=== PATIENT | female | born 2000 | race Caucasian/White ===

== ENCOUNTER 2020-01-03 12:40 | Emergency (ER) | payer BC ==
[2020-01-03] MEDS ORDERED: Lidocaine 1% 10 ML MDV INJECT ONE (13:15)
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
--- NOTE | 2020-01-03 14:10 | CR ---
Left foot: 4 views of the left foot were obtained. Comparison: No previous left foot exam is available. No fracture, dislocation or other bony abnormality is appreciated. Impression: 1. No abnormality is identified on left foot exam. Diagnostic code #1 This report was dictated in MDT
== END 2020-01-03 14:27 | disposition home or self-care (01) ==
LOC: JD.ED 12:40
DX: S01.112A Laceration without foreign body of left eyelid and periocular area, initial encounter (principal); S90.32XA Contusion of left foot, initial encounter; F41.9 Anxiety disorder, unspecified; F32.9 Major depressive disorder, single episode, unspecified; Z88.0 Allergy status to penicillin; Z79.899 Other long term (current) drug therapy; W11.XXXA Fall on and from ladder, initial encounter
CPT/HCPCS: 12011; 73630; 99283; J2001; 99282

== ENCOUNTER 2020-03-03 17:50 | Emergency (ER) | payer BC ==
--- NOTE | 2020-03-03 18:39 | EDM.PDOC ---
ED HPI GENERAL MEDICAL PROBLEM - General Chief Complaint: ENT Problem Stated Complaint: SORE THROAT, RUNNY NOSE Time Seen by Provider: 03/03/20 18:05 Source of Information: Reports: Patient, RN Notes Reviewed History Limitations: Reports: No Limitations - History of Present Illness INITIAL COMMENTS - FREE TEXT/NARRATIVE: Patient is a 19-year-old female who presents to the ED for the evaluation of her upper respiratory symptoms. Patient was seen at the [facility], and was tested for influenza, and had this ruled out. She was sent here by her primary care, for a COVID test. Patient states that she has been having issues with a headache, sore throat, fullness behind her ears, a mild cough that all started today or late yesterday. She denies any fevers or chills, nausea/vomiting, or any shortness of breath. 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 O2 sats at time of triage are 98% on room air, patient's heart rate is 106, she is afebrile at 98.6 F, respiratory rate is 18 nonlabored, blood pressure is 123/72. Patient denies any other past medical history, and states that she is not , because she has not had sex ever. 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 Psychiatric History: Reports: Anxiety, Depression Dermatologic History: Reports: Other (See Below) Other Dermatologic History: acne - Past Surgical History HEENT Surgical History: Reports: Adenoidectomy, Oral Surgery, Tonsillectomy Female Surgical History: Reports: Breast Reduction Social & Family History - Family History Family Medical History: Noncontributory - Tobacco Use Smoking Status *Q: Never Smoker Second Hand Smoke Exposure: No - Caffeine Use Caffeine Use: Reports: Coffee, Soda, Tea - Recreational Drug Use Recreational Drug Use: No ED ROS ENT - Review of Systems Review Of Systems: See Below Constitutional: Reports: Malaise. Denies: Fever, Chills Respiratory: Reports: Cough (mild). Denies: Shortness of Breath Cardiovascular: Denies: Chest Pain GI/Abdominal: Denies: Nausea, Vomiting Neurological: Reports: Headache ED EXAM, ENT - Physical Exam Exam: See Below Exam Limited By: No Limitations General Appearance: Alert, WD/WN, No Apparent Distress Ears: Normal External Exam, Normal Canal, Hearing Grossly Normal, Normal TMs Nose: Normal Inspection Mouth/Throat: Normal Inspection, Normal Gums, Normal Lips, Normal Oropharynx, Normal Teeth, Pharyngeal Erythema (mild). No: Uvular Deviation, Uvular Edema Head: Atraumatic, Normocephalic Neck: Normal Inspection, Supple, Non-Tender, Full Range of Motion Respiratory/Chest: No Respiratory Distress, Lungs Clear, Normal Breath Sounds, No Accessory Muscle Use, Chest Non-Tender Cardiovascular: Normal Peripheral Pulses, Regular Rate, Rhythm, No Murmur GI/Abdominal: Normal Bowel Sounds, Soft, Non-Tender, No Distention, No Mass Extremities: Normal Inspection, Normal Capillary Refill Neurological: Alert, Oriented, Normal Cognition, No Motor/Sensory Deficits Psychiatric: Normal Affect, Normal Mood Skin: Warm, Dry, Intact, Normal Color, No Rash Course - Vital Signs Last Recorded V/S: Last Vital Signs Temp 98.6 F 03/03/20 18:02 Pulse 106 H 03/03/20 18:02 Resp 18 03/03/20 18:02 BP 123/72 03/03/20 18:02 Pulse Ox 97 03/03/20 18:02 - Orders/Labs/Meds Orders: Active Orders 24 hr Category Date Time Status Chest 1V Frontal [CR] Stat Exams 03/03/20 18:33 Stop Req CORONAVIRUS COVID-19 PCR PHL Stat Lab 03/03/20 18:16 Ordered STREP SCRN A RAPID W CULT CONF [RM] Stat Lab 03/03/20 18:15 Ordered - Re-Assessments/Exams Free Text/Narrative Re-Assessment/Exam: 03/03/20 18:39 Patient presents to the ED for evaluation of her upper respiratory symptoms. Although I do believe she probably has low likelihood to have COVID-19 infection, she does have a few of the symptoms and will be screened at today's visit. She will also have a strep swab checked, along with a chest x-ray. M other states that she has quite a bit of family over due to a recent in the family, and was worried about the possibility of spreading it to other family members. 03/03/20 18:52 Was made aware by nursing, that the patient has a pretty profuse gag reflex, and is not allowing her to get an adequate sample for the swabs and is refusing at this time. With this information I did talk with the patient and she does not want a chest x-ray either, she will monitor symptoms at home and present for management if needed. This is fine with me I did tell her that she should probably try to self isolate from elderly family members as much as possible, they seem to be okay with this at this time. Departure - Departure Time of Disposition: 18:53 Disposition: Home, Self-Care 01 Condition: Good Clinical Impression: Viral URI - Discharge Information *PRESCRIPTION DRUG MONITORING PROGRAM REVIEWED*: No *COPY OF PRESCRIPTION DRUG MONITORING REPORT IN PATIENT VLAD: No Instructions: Upper Respiratory Infection, Adult, [id number] Referrals: Nika Gray PA-C [Primary Care Provider] - Forms: ED Department Discharge Additional Instructions: You have been evaluated in the ED today for your cold like symptoms. Please increase your fluid intake. Get plenty of rest as well. You should feel better in a few days. As with any illness, please try to limit your exposure to others to help mitigate the spread of germs. Please also remember to wash your hands after you cough/sneeze. Please try to limit touching your face, and then touching other surfaces. Recommend that you take some [id number] nasal decongestants, cough/cold remedies to combat this. You may take 500mg Tylenol (acetaminophen) or 600mg Advil/Motrin (ibuprofen) every 6 hours as needed for further pain/fever relief. Do not exceed 4000 mg Tylenol or 3200 mg ibuprofen in a 24-hour time span. If you have high blood pressure, medications like Coricidin would be adequate to use. If your symptoms are not better in one week's time recommend that you follow up in a clinic or your primary care provider. Our [facility] clinic number is [phone], the [facility] is [phone]. Any family practice provider would be able to provide you with the services. Please return to the ED if your symptoms change or worsen. Sepsis Event Note (ED) - Evaluation Sepsis Screening Result: No Definite Risk - Focused Exam Vital Signs: Vital Signs Temp Pulse Resp BP Pulse Ox 03/03/20 18:02 98.6 F 106 H 18 123/72 97 - My Orders Last 24 Hours: My Active Orders 03/03/20 18:15 STREP SCRN A RAPID W CULT CONF [RM] Stat 03/03/20 18:16 CORONAVIRUS COVID-19 PCR PHL Stat 03/03/20 18:33 Chest 1V Frontal [CR] Stat - Assessment/Plan Last 24 Hours: My Active Orders 03/03/20 18:15 STREP SCRN A RAPID W CULT CONF [RM] Stat 03/03/20 18:16 CORONAVIRUS COVID-19 PCR PHL Stat 03/03/20 18:33 Chest 1V Frontal [CR] Stat
== END 2020-03-03 19:10 | disposition home or self-care (01) ==
LOC: JD.ED 17:50
DX: J06.9 Acute upper respiratory infection, unspecified (principal); F41.9 Anxiety disorder, unspecified; F32.9 Major depressive disorder, single episode, unspecified; Z79.899 Other long term (current) drug therapy; Z88.1 Allergy status to other antibiotic agents
CPT/HCPCS: 99282